=== PATIENT | female | born 1945 ===

== ENCOUNTER 2017-01-28 11:53 | Emergency (ER) | payer MEDICARE, MEDICAID ==
[2017-01-28 11:55] VITALS: BMI 29.2
[2017-01-28 12:22] VITALS: BP 137/112; PULSE 85; RESP 20; TEMP 97.3; O2SAT 99
[2017-01-28] MEDS ORDERED: Bacitracin/Neomycin/Polymyxin 30GM OINT TOP STA (12:35)
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
== END 2017-01-28 13:32 | disposition home or self-care (01) ==
LOC: H.ER 11:53
DX: T23.201A Burn of second degree of right hand, unspecified site, initial encounter (principal); T24.231A Burn of second degree of right lower leg, initial encounter; T21.22XA Burn of second degree of abdominal wall, initial encounter; X10.1XXA Contact with hot food, initial encounter; Y92.89 Other specified places as the place of occurrence of the external cause; E78.00 Pure hypercholesterolemia, unspecified; F32.9 Major depressive disorder, single episode, unspecified; F41.9 Anxiety disorder, unspecified; I10 Essential (primary) hypertension; J44.9 Chronic obstructive pulmonary disease, unspecified; Z79.82 Long term (current) use of aspirin